=== PATIENT | female | born 1950 | race Caucasian/White ===

== ENCOUNTER 2018-06-09 11:01 | Emergency (ER) | payer MEDICARE, BC ==
[~2018-06-09] VITALS: Ht 162.6 cm; Wt 77.1 kg
[~2018-06-09 11:01] MED LIST: Amoxicillin500 MG PO; DONE10 PO; MEMA10; SULFATRIM 800-120 ML PO; Tessalon200 MG
[2018-06-09] MEDS ORDERED: AMPI500 PO (11:13)
== END 2018-06-09 14:30 | disposition home or self-care (01) ==
LOC: ER 11:01
DX: S00.83XA Contusion of other part of head, initial encounter (principal); W06.XXXA Fall from bed, initial encounter; Z79.899 Other long term (current) drug therapy
CPT/HCPCS: 99283

== ENCOUNTER → 2018-06-27 | Outpatient (CLI) | payer MEDICARE, BC ==
[~2018-06-27] MED LIST changes: +AMPI500 PO
[2018-06-27 15:39] LABS: Source, Urine Catheter
[2018-06-27 16:21] LABS: Bilirubin, Urine Neg (Neg); Blood, Urine Neg (Neg); Glucose Qualitative, Urine Neg (Neg); Ketones, Urine Neg (Neg); Leukocyte Esterase, Urine Neg (Neg); Nitrite, Urine Neg (Neg); Protein, Urine Neg (Neg); Urobilinogen, Urine NORM (Normal)
[2018-06-27 16:40] LABS: Appearance, Urine Clear (Clear); Color, Urine Pale Yellow (P-Yellow)
== END | disposition home or self-care (01) ==
LOC: LAB 15:37 → LAB SHORT 15:37
PROVIDERS: Family Medicine
DX: R30.0 Dysuria (principal)
CPT/HCPCS: 81003